=== PATIENT | female | born 1995 | race African-American/Black ===

== ENCOUNTER 2020-05-22 21:56 | Observation (INO) | payer MEDICAID ==
[~2020-05-22] VITALS: Ht 165.1 cm; Wt 59.0 kg
[2020-05-22 23:08] LABS: COLOR URINE YELLOW (YELLOW); KETONES URINE NEGATIVE (NEGATIVE); LEUKOCYTE ESTERASE URINE 1+ (NEGATIVE); NITRITE URINE NEGATIVE (NEGATIVE); OCCULT BLOOD URINE NEGATIVE (NEGATIVE); PROTEIN URINE NEGATIVE (NEGATIVE); SPECIFIC GRAVITY URINE 1.009 (1.005-1.030); UROBILINOGEN URINE 0.2 E.U./dL (0.2-1.0)
[2020-05-22 23:09] LABS: CLARITY URINE SLIGHTLY HAZY (CLEAR)
[2020-05-23] MEDS ORDERED: FERR236T3 MT (00:47)
[2020-05-23] MEDS ORDERED: PNV1TABL76 PO (00:47)
[2020-05-23] MEDS ORDERED: FERR-71 MT (00:47)
[2020-05-23] MEDS ORDERED: CEFAZOLIN 2,000 MG in DEXT 5% WATER 100 ML IV SCH ×4 (01:00)
== END 2020-05-23 01:20 | disposition home or self-care (01) ==
LOC: 8 EST LDRP 21:56
PROVIDERS: ADMIT Obstetrics & Gynecology; ATTEND Obstetrics & Gynecology
DX: O26.892 Other specified pregnancy related conditions, second trimester (principal); R10.30 Lower abdominal pain, unspecified; Z3A.24 24 weeks gestation of pregnancy
CPT/HCPCS: 59025; 76805; 81003; 96365; G0378; J0690; J7060; 96360; 99281

== ENCOUNTER 2020-06-07 12:14 | Observation (INO) | payer MEDICAID ==
[~2020-06-07] VITALS: Ht 165.1 cm; Wt 62.6 kg
[~2020-06-07 12:14] MED LIST: FERR-71 MT; FERR236T3 MT; PNV1TABL76 PO
== END 2020-06-07 13:16 | disposition home or self-care (01) ==
LOC: 8 EST LDRP 12:14
PROVIDERS: ADMIT Obstetrics & Gynecology; ATTEND Obstetrics & Gynecology
DX: O26.892 Other specified pregnancy related conditions, second trimester (principal); R10.2 Pelvic and perineal pain; Z3A.27 27 weeks gestation of pregnancy
CPT/HCPCS: 59025; G0378; 99281

== ENCOUNTER 2022-08-16 23:23 | Emergency (ER) | payer MEDICAID, OTHER ==
[~2022-08-16] VITALS: Ht 165.1 cm; Wt 52.0 kg
[2022-08-16 23:35] VITALS: BP 112/78
[2022-08-17 00:33] LABS: CLARITY URINE CLOUDY (CLEAR); COLOR URINE YELLOW (YELLOW); KETONES URINE NEGATIVE (NEGATIVE); LEUKOCYTE ESTERASE URINE 3+ (NEGATIVE); NITRITE URINE POSITIVE (NEGATIVE); OCCULT BLOOD URINE NEGATIVE (NEGATIVE); PROTEIN URINE NEGATIVE (NEGATIVE); SPECIFIC GRAVITY URINE 1.015 (1.005-1.030); UROBILINOGEN URINE 0.2 E.U./dL (0.2-1.0)
[2022-08-17] MEDS ORDERED: IBUP-2029 MT (00:43)
[2022-08-17] MEDS ORDERED: CEPH500C2 MT (00:43)
[2022-08-17] MEDS ORDERED: CEPHALEXIN 250MG CAPSULE PO ONE (00:45)
[2022-08-17] MEDS ORDERED: IBUPROFEN 600MG TABLET PO ONE (00:45)
== END 2022-08-17 01:10 | disposition home or self-care (01) ==
LOC: ER 23:23
DX: N39.0 Urinary tract infection, site not specified (principal)
CPT/HCPCS: 81003; 81025; 87077; 87186; 99283

== ENCOUNTER 2023-08-26 10:43 | Emergency (ER) | payer SELFPAY ==
[~2023-08-26] VITALS: Ht 160 cm; Wt 58.0 kg
[~2023-08-26 10:43] MED LIST changes: +CEPH500C2 MT; +IBUP-2029 MT
[2023-08-26 11:02] VITALS: BP 119/73; PULSE 120; RESP 20; TEMP 98.5; O2SAT 100
== END 2023-08-26 13:14 | disposition left against medical advice (07) ==
LOC: ER 10:43
DX: R52 Pain, unspecified (principal); Z53.21 Procedure and treatment not carried out due to patient leaving prior to being seen by health care provider
CPT/HCPCS: 99281

== ENCOUNTER 2023-11-04 11:17 | Emergency (ER) | payer MEDICAID ==
[~2023-11-04] VITALS: Ht 160 cm; Wt 53.0 kg
[2023-11-04 11:21] VITALS: O2SAT 100
[2023-11-04] MEDS: KETOROLAC 60MG/2ML VIAL IM STA (11:40)
[2023-11-04] MEDS: LIDOCAINE HCL/PF 1% 10 MG/ML 5ML VIAL INFIL ONE (11:45)
[2023-11-04] MEDS: BACITRACIN ZINC OINT UDPKT TOP ONE (11:45)
[2023-11-04] MEDS ORDERED: CEPH500C2 MT (12:44)
[2023-11-04] MEDS ORDERED: SULF1TAB48 MT (12:44)
[2023-11-04] MEDS ORDERED: NAPR-681 PO (12:44)
[2023-11-04 13:07] VITALS: BP 130/61; PULSE 84; RESP 20; TEMP 98.1
== END 2023-11-04 13:07 | disposition home or self-care (01) ==
LOC: ER 11:17
DX: N61.1 Abscess of the breast and nipple (principal); Z79.899 Other long term (current) drug therapy
CPT/HCPCS: 96372; 99283; J1885; J3490; Z7610 ×5

== ENCOUNTER 2024-12-07 02:26 | Emergency (ER) | payer OTHER ==
[~2024-12-07] VITALS: Ht 165.1 cm; Wt 52.0 kg
[~2024-12-07 02:26] MED LIST changes: +NAPR-681 PO; +SULF1TAB48 MT
[2024-12-07 02:44] VITALS: O2SAT 98
[2024-12-07] MEDS ORDERED: AMOX1TAB16 MT (03:28)
[2024-12-07] MEDS ORDERED: KETOROLAC 30MG/ML VIAL IM ONE (03:30)
[2024-12-07] MEDS ORDERED: AMOXICILLIN/POTASSIUM CLAVULANATE 875/125MG TAB PO ONE (03:30)
[2024-12-07 03:33] VITALS: BP 141/86; PULSE 69; RESP 18; TEMP 36.8; O2SAT 100
== END 2024-12-07 03:34 | disposition home or self-care (01) ==
LOC: ER 02:26
DX: K04.7 Periapical abscess without sinus (principal); Z98.890 Other specified postprocedural states; Z79.899 Other long term (current) drug therapy
CPT/HCPCS: 81025; 99283

== ENCOUNTER 2025-03-04 04:49 | Emergency (ER) | payer OTHER ==
[~2025-03-04] VITALS: Ht 167.6 cm; Wt 51.0 kg
[~2025-03-04 04:49] MED LIST changes: +AMOX1TAB16 MT
[2025-03-04 04:55] VITALS: O2SAT 99
[2025-03-04] MEDS: ACETAMINOPHEN 325MG TABLET PO ONE (05:56)
[2025-03-04] MEDS ORDERED: TOPUD PO (08:29)
[2025-03-04] MEDS ORDERED: CEPH500C2 PO (08:29)
[2025-03-04] MEDS ORDERED: SULF1TAB48 PO (08:29)
[2025-03-04] MEDS: LIDOCAINE HCL 1% 20ML VIAL INFIL ONE (08:30)
[2025-03-04 08:49] VITALS: BP 128/70; PULSE 89; RESP 18; TEMP 36.8; O2SAT 99
== END 2025-03-04 08:50 | disposition home or self-care (01) ==
LOC: ER 04:49
DX: N61.1 Abscess of the breast and nipple (principal); Z98.890 Other specified postprocedural states; Z79.899 Other long term (current) drug therapy
CPT/HCPCS: 76641; 99284